=== PATIENT | male | born 1950 | race Caucasian/White ===

== ENCOUNTER 2019-01-27 14:29 | Inpatient (IN) | payer MEDICARE ==
[2019-01-27 14:53] LABS: Basophils % (Auto) 0.5 % (0.0-1.8); Eosinophils # (Auto) 0.5 K/mm3 (0.0-0.4); Eosinophils % (Auto) 9.1 % (0.0-4.3); Hematocrit 42.6 % (35.5-45.6); Hemoglobin 14.6 gm/dl (11.8-15.2); Lymphocytes # (Auto) 2.4 K/mm3 (1.2-5.4); Lymphocytes % (Auto) 41.5 % (13.4-35.0); Mean Corpuscular HGB Conc 34 % (32-34); Mean Corpuscular Volume 96 fl (84-94); Monocytes # (Auto) 0.4 K/mm3 (0.0-0.8); Platelet Count 179 K/mm3 (140-440); Red Blood Count 4.43 M/mm3 (3.65-5.03); Red Cell Distribution Width 13.6 % (13.2-15.2)
[2019-01-27 15:07] LABS: INR 1.07 (0.87-1.13); Partial Thromboplastin Time 28.9 Sec. (24.2-36.6); Thrombin Time 16.9 Sec. (15.1-19.6)
--- NOTE | 2019-01-27 15:13 | Cat Scan Report ---
CT HEAD WITHOUT CONTRAST: HISTORY: Neurological deficit. TECHNIQUE: Sequential 2.5mm CT images. COMPARISON: 04/11/14. FINDINGS: Cerebral Parenchyma: Mild diffuse volume loss and moderate nonspecific chronic white matter changes are again identified. Multiple chronic focal infarcts in the bilateral basal ganglia are again noted and unchanged. There is a new area of diminished attenuation in the right temporal lobe measuring 2.2 x 1.4 cm which could represent a new area of subacute ischemia. Cerebellum: There are multiple focal chronic infarcts in the left cerebral hemisphere measuring up to 1.5 cm. There were only 2 chronic infarcts in the left cerebellum on the 2014 exam. Brainstem: Within normal limits. Ventricles: Normal. Sella: Normal. Extra-axial spaces: Normal. Basal Cisterns: Normal. Intracranial Hemorrhage: None. Midline Shift: None. Calvarium: Normal. Sinuses: Normal. Mastoid Air Cells: Normal. Visualized Orbits: Normal. IMPRESSION: Volume loss and chronic white matter changes. Multiple chronic focal infarcts as described. There is a new area of diminished attenuation in the right temporal lobe concerning for subacute ischemia. Please see above.
[2019-01-27 15:14] LABS: BUN/Creatinine Ratio 12; Blood Urea Nitrogen 12 mg/dL (9-20); Calcium 8.6 mg/dL (8.4-10.2); Hemolysis Index 23
[2019-01-27] MEDS ORDERED: ASPIRIN PO ONE (15:54)
--- NOTE | 2019-01-27 15:56 | Emergency Department Report ---
ED Neuro Deficit HPI - General Chief Complaint: Neuro Symptoms/Deficit Stated Complaint: POSSIBLE STROKE Time Seen by Provider: 01/27/19 15:32 Source: EMS Mode of arrival: Stretcher Limitations: Language Barrier - History of Present Illness Initial Comments: 68-year-old Irish male with a past medical history of elevated cholesterol and tobacco use presents to the Hospital with stroke symptoms. At 1:45 PM bystander's report that patient started having stuttering speech and then stop talking. Upon EMS arrival patient was communicating with staff stated that he did not sound normal and he complained of generalized weakness. Left facial droop reported prior to arrival but not witnessed by EMS. EMS reports no focal deficits in route to the hospital. No pain reported. - Related Data Home Medications: Previous Rx's Medication Instructions Recorded Last Taken Type Cyclobenzaprine [Flexeril 10mg] 10 mg PO TID PRN #12 tablet 04/11/14 Unknown Rx HYDROcodone/APAP 5-325 [[place] 1 - 2 each PO Q4-6H PRN #12 tablet 04/11/14 Unknown Rx 5/325] Ibuprofen [Motrin 800 MG tab] 800 mg PO TID PRN #20 tablet 04/11/14 Unknown Rx Allergies/Adverse Reactions: Allergies Allergy/AdvReac Type Severity Reaction Status Date / Time No Known Allergies Allergy Unverified 04/11/14 11:13 ED Review of Systems ROS: Stated complaint: POSSIBLE STROKE Other details as noted in HPI ED Past Medical Hx - Past Medical History Additional medical history: FIONA, pt speaks vietnemese - Surgical History 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 - Social History Smoking Status: Current Some Day Smoker Substance Use Type: None, Alcohol (none 20 years) - Medications Home Medications: Home Medications Medication Instructions Recorded Confirmed Last Taken Type Cyclobenzaprine [Flexeril 10mg] 10 mg PO TID PRN #12 tablet 04/11/14 Unknown Rx HYDROcodone/APAP 5-325 [[place] 1 - 2 each PO Q4-6H PRN #12 tablet 04/11/14 Unknown Rx 5/325] Ibuprofen [Motrin 800 MG tab] 800 mg PO TID PRN #20 tablet 04/11/14 Unknown Rx ED Neuro Physical Exam - General Limitations: Language Barrier Suspected Stroke: Yes - Neurological Exam Neurological exam: Present: alert - NIHSS Assessment Interval: Baseline 1a. Level of Consciousness: alert/keenly responsive 1b. LOC Questions: answers both correctly 1c. LOC Commands: performs tasks correctly 2. Best Gaze: normal 3. Visual: no visual loss 4. Facial Palsy: normal symmetrical movement 5b. Motor Arm Right: no drift 5a. Motor Arm Left: no drift 6a. Motor Leg Left: no drift 6b. Motor Leg Right: no drift 7. Limb Ataxia: absent 8. Sensory: normal 9. Best Language: no aphasia 10. Dysarthria: normal 11. Extinction/Inattention: no abnormality Total Score: 0 Stroke Severity: No Stroke Symptoms - Other Other exam information: General: No limitations, patient is alert in no acute distress Head exam: Atraumatic, normocephalic Eyes exam: Normal appearance, pupils equal reactive to light, extraocular movements intact ENT: Moist mucous membrane Neck exam: Normal inspection, full range of motion, no meningismus nontender Respiratory exam: Clear to auscultation bilateral, no wheezes, rales, crackles Cardiovascular: Normal rate and rhythm, normal heart sounds Abdomen: Soft, nondistended, and nontender, with normal bowel sounds, no rebound, or guarding Extremity: Full range of motion normal inspection no deformity Back: Normal Inspection, full range of motion, no tenderness Neurologic: Alert, oriented x3, cranial nerves intact, no motor or sensory deficit Psychiatric: normal affect, normal mood Skin: Warm, dry, intact ED Course Vital Signs 01/27/19 01/27/19 01/27/19 14:47 15:15 15:46 Temperature 99 F Pulse Rate 83 77 74 Respiratory 16 16 16 Rate Blood Pressure 122/73 112/70 124/73 [Left] O2 Sat by Pulse 95 98 97 Oximetry - Consultations Consultation #1: 01/27/19 15:55 case d/w dr Galvin with neuro, no deficits noted on her exam, subacute stroke on ct head, not a tpa or thrombectomy candidate at this time. Admission for cva workup - Lab Data Result diagrams: 01/27/19 14:46 01/27/19 14:46 Lab Results 01/27/19 01/27/19 01/27/19 Range/Units 14:46 14:46 14:46 WBC 5.8 (4.5-11.0) K/mm3 RBC 4.43 (3.65-5.03) M/mm3 Hgb 14.6 (11.8-15.2) gm/dl Hct 42.6 (35.5-45.6) % MCV 96 H (84-94) fl MCH 33 H (28-32) pg MCHC 34 (32-34) % RDW 13.6 (13.2-15.2) % Plt Count 179 (140-440) K/mm3 Lymph % (Auto) 41.5 H (13.4-35.0) % [place] % (Auto) 7.0 (0.0-7.3) % Eos % (Auto) 9.1 H (0.0-4.3) % Baso % (Auto) 0.5 (0.0-1.8) % Lymph # 2.4 (1.2-5.4) K/mm3 [place] # 0.4 (0.0-0.8) K/mm3 Eos # 0.5 H (0.0-0.4) K/mm3 Baso # 0.0 (0.0-0.1) K/mm3 Seg Neutrophils % 41.9 (40.0-70.0) % Seg Neutrophils # 2.4 (1.8-7.7) K/mm3 PT 13.6 (12.2-14.9) Sec. INR 1.07 (0.87-1.13) APTT 28.9 (24.2-36.6) Sec. Thrombin Time 16.9 (15.1-19.6) Sec. Sodium 140 (137-145) mmol/L Potassium 4.0 (3.6-5.0) mmol/L Chloride 103.7 (98-107) mmol/L Carbon Dioxide 25 (22-30) mmol/L Anion Gap 15 mmol/L BUN 12 (9-20) mg/dL Creatinine 1.0 (0.8-1.5) mg/dL Estimated GFR > 60 ml/min BUN/Creatinine Ratio 12 % Glucose 110 H (75-100) mg/dL POC Glucose (70-105) Calcium 8.6 (8.4-10.2) mg/dL Troponin T < 0.010 (0.00-0.029) ng/mL 01/27/19 Range/Units 14:59 WBC (4.5-11.0) K/mm3 RBC (3.65-5.03) M/mm3 Hgb (11.8-15.2) gm/dl Hct (35.5-45.6) % MCV (84-94) fl MCH (28-32) pg MCHC (32-34) % RDW (13.2-15.2) % Plt Count (140-440) K/mm3 Lymph % (Auto) (13.4-35.0) % [place] % (Auto) (0.0-7.3) % Eos % (Auto) (0.0-4.3) % Baso % (Auto) (0.0-1.8) % Lymph # (1.2-5.4) K/mm3 [place] # (0.0-0.8) K/mm3 Eos # (0.0-0.4) K/mm3 Baso # (0.0-0.1) K/mm3 Seg Neutrophils % (40.0-70.0) % Seg Neutrophils # (1.8-7.7) K/mm3 PT (12.2-14.9) Sec. INR (0.87-1.13) APTT (24.2-36.6) Sec. Thrombin Time (15.1-19.6) Sec. Sodium (137-145) mmol/L Potassium (3.6-5.0) mmol/L Chloride (98-107) mmol/L Carbon Dioxide (22-30) mmol/L Anion Gap mmol/L BUN (9-20) mg/dL Creatinine (0.8-1.5) mg/dL Estimated GFR ml/min BUN/Creatinine Ratio % Glucose (75-100) mg/dL POC Glucose 106 H (70-105) Calcium (8.4-10.2) mg/dL Troponin T (0.00-0.029) ng/mL - EKG Data -: EKG Interpreted by Or EKG shows normal: sinus rhythm, axis (qrs -50), QRS complexes (qrsd 102), ST-T waves (no stemi) Rate: normal (83) - Radiology Data Radiology results: report reviewed CT head non-contrast: Volume loss and chronic white matter changes. Multiple chronic focal infarcts. A new area of diminished attenuation in the right temporal lobe concerning for subacute ischemia - Medical Decision Making no current deficits not a tpa candidate passed swallow screen asa provided neuro consulted - Differential Diagnosis cva, ich, encephalopathy Critical Care Time: No Critical care attestation.: If time is entered above; I have spent that time in minutes in the direct care of this critically ill patient, excluding procedure time. ED Disposition Clinical Impression: Stroke, Hypercholesteremia, Smoker Disposition: OP ADMIT IP TO THIS HOSP Is pt being admited?: Yes Does the pt Need Aspirin: Yes Condition: Stable Time of Disposition: 16:11 (Dr mckeon/hosp)
--- NOTE | 2019-01-27 15:57 | Emergency Department Report ---
ED Neuro Deficit HPI - General Chief Complaint: Neuro Symptoms/Deficit Stated Complaint: POSSIBLE STROKE Time Seen by Provider: 01/27/19 15:32 Source: EMS Mode of arrival: Stretcher Limitations: Language Barrier - History of Present Illness Initial Comments: [employer] Date of Service: 01/27/19 Impression: Right temporal lobe infarct: symptoms resolved and based on presence on CT likely happened prior to the onset time of 13:20. - - - Not a tpa candidate due to: symptoms resolved Presentation is not suggestive of Large Vessel Occlusive Disease. Thrombectomy would not be recommended. Differential Diagnosis: 1. Cardioembolic 2. Small vessel disease/lacune 3. Thromboembolic, [id number] mechanism 4. Hypercoagulable state-related infarct Comments: LKN: 13:20 Door time: 14:29 [employer] contacted: 15:36 [employer] at bedside: 15:39 NIHSS assessment time: 15:40 Recommendations: -ASA -Permissive htn up to 220/120 -Check Hgb A1c and lipid panel -dysphagia screen -Telemetry -Glucose control per primary team, avoid hypo- and hyperglycemia -DVT prophylaxis -PT/OT/Speech Inpatient neurology consultation Inpatient stroke evaluation as per Neurology/ Internal Medicine Discussed with ED MD Please call with questions Krystyna Vicente, DO [employer] CC left sided weakness and slurred speech History of Present Illness History taken with Jamaican interpretor 68 yo M with history of hl who presented with slurred speech and left sided weakness. Symptoms started at 13:20 per his friend having slurred speech and left sided weakness. He has improved since getting back to the hospital and they feel he is back to baseline. Diagnostic: CT head: evolving right temporal infarct Exam: NIHSS score: 0 Medical Decision Making: - Extensive number of diagnosis or management options are considered above. - Extensive amount of complex data reviewed. - High risk of complication and/or morbidity or mortality are associated with differential diagnostic considerations above. - There may be Uncertain outcome and increased probability of prolonged functional impairment or high probability of severe prolonged functional impairment associated with some of these differential diagnosis. Medical Data Reviewed: 1.Data reviewed include clinical labs, radiology, Medical Tests; 2.Tests results discussed w/performing or interpreting physician; 3.Obtaining/reviewing old medical records; 4.Obtaining case history from another source; 5.Independent review of image, tracing or specimen. Patient was informed the Neurology Consult would happen via TeleHealth consult by way of interactive audio and video telecommunications and consented to receiving care in this manner. - Related Data Home Medications: Previous Rx's Medication Instructions Recorded Last Taken Type Cyclobenzaprine [Flexeril 10mg] 10 mg PO TID PRN #12 tablet 04/11/14 Unknown Rx HYDROcodone/APAP 5-325 [[place] 1 - 2 each PO Q4-6H PRN #12 tablet 04/11/14 Unknown Rx 5/325] Ibuprofen [Motrin 800 MG tab] 800 mg PO TID PRN #20 tablet 04/11/14 Unknown Rx Allergies/Adverse Reactions: Allergies Allergy/AdvReac Type Severity Reaction Status Date / Time No Known Allergies Allergy Unverified 04/11/14 11:13 ED Review of Systems ROS: Stated complaint: POSSIBLE STROKE Other details as noted in HPI ED Past Medical Hx - Past Medical History Additional medical history: FIONA, pt speaks vietnemese - Surgical History 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 Level of Consciousness: alert/keenly responsive 1b. LOC Questions: answers both correctly 1c. LOC Commands: performs tasks correctly 2. Best Gaze: normal 3. Visual: no visual loss 4. Facial Palsy: normal symmetrical movement 5b. Motor Arm Right: no drift 5a. Motor Arm Left: no drift 6a. Motor Leg Left: no drift 6b. Motor Leg Right: no drift 7. Limb Ataxia: absent 8. Sensory: normal 9. Best Language: no aphasia 10. Dysarthria: normal 11. Extinction/Inattention: no abnormality Total Score: 0 Stroke Severity: No Stroke Symptoms ED Course Vital Signs 01/27/19 01/27/19 14:47 15:46 Temperature 99 F Pulse Rate 83 74 Respiratory 16 16 Rate Blood Pressure 122/73 124/73 [Left] O2 Sat by Pulse 95 97 Oximetry - Lab Data Result diagrams: 01/27/19 14:46 01/27/19 14:46 Lab Results 01/27/19 01/27/19 01/27/19 Range/Units 14:46 14:46 14:46 WBC 5.8 (4.5-11.0) K/mm3 RBC 4.43 (3.65-5.03) M/mm3 Hgb 14.6 (11.8-15.2) gm/dl Hct 42.6 (35.5-45.6) % MCV 96 H (84-94) fl MCH 33 H (28-32) pg MCHC 34 (32-34) % RDW 13.6 (13.2-15.2) % Plt Count 179 (140-440) K/mm3 Lymph % (Auto) 41.5 H (13.4-35.0) % [place] % (Auto) 7.0 (0.0-7.3) % Eos % (Auto) 9.1 H (0.0-4.3) % Baso % (Auto) 0.5 (0.0-1.8) % Lymph # 2.4 (1.2-5.4) K/mm3 [place] # 0.4 (0.0-0.8) K/mm3 Eos # 0.5 H (0.0-0.4) K/mm3 Baso # 0.0 (0.0-0.1) K/mm3 Seg Neutrophils % 41.9 (40.0-70.0) % Seg Neutrophils # 2.4 (1.8-7.7) K/mm3 PT 13.6 (12.2-14.9) Sec. INR 1.07 (0.87-1.13) APTT 28.9 (24.2-36.6) Sec. Thrombin Time 16.9 (15.1-19.6) Sec. Sodium 140 (137-145) mmol/L Potassium 4.0 (3.6-5.0) mmol/L Chloride 103.7 (98-107) mmol/L Carbon Dioxide 25 (22-30) mmol/L Anion Gap 15 mmol/L BUN 12 (9-20) mg/dL Creatinine 1.0 (0.8-1.5) mg/dL Estimated GFR > 60 ml/min BUN/Creatinine Ratio 12 % Glucose 110 H (75-100) mg/dL POC Glucose (70-105) Calcium 8.6 (8.4-10.2) mg/dL Troponin T < 0.010 (0.00-0.029) ng/mL 01/27/19 Range/Units 14:59 WBC (4.5-11.0) K/mm3 RBC (3.65-5.03) M/mm3 Hgb (11.8-15.2) gm/dl Hct (35.5-45.6) % MCV (84-94) fl MCH (28-32) pg MCHC (32-34) % RDW (13.2-15.2) % Plt Count (140-440) K/mm3 Lymph % (Auto) (13.4-35.0) % [place] % (Auto) (0.0-7.3) % Eos % (Auto) (0.0-4.3) % Baso % (Auto) (0.0-1.8) % Lymph # (1.2-5.4) K/mm3 [place] # (0.0-0.8) K/mm3 Eos # (0.0-0.4) K/mm3 Baso # (0.0-0.1) K/mm3 Seg Neutrophils % (40.0-70.0) % Seg Neutrophils # (1.8-7.7) K/mm3 PT (12.2-14.9) Sec. INR (0.87-1.13) APTT (24.2-36.6) Sec. Thrombin Time (15.1-19.6) Sec. Sodium (137-145) mmol/L Potassium (3.6-5.0) mmol/L Chloride (98-107) mmol/L Carbon Dioxide (22-30) mmol/L Anion Gap mmol/L BUN (9-20) mg/dL Creatinine (0.8-1.5) mg/dL Estimated GFR ml/min BUN/Creatinine Ratio % Glucose (75-100) mg/dL POC Glucose 106 H (70-105) Calcium (8.4-10.2) mg/dL Troponin T (0.00-0.029) ng/mL Critical care attestation.: If time is entered above; I have spent that time in minutes in the direct care of this critically ill patient, excluding procedure time. ED Disposition Clinical Impression: Stroke Disposition: DC-09 OP ADMIT IP TO THIS HOSP Is pt being admited?: Yes Condition: Stable Referrals: PRIMARY CARE, [Primary Care Provider] - 3-5 Days
[2019-01-27] MEDS ORDERED: SODIUM CHLORIDE FLUSH SYRINGE 10 ML IV PRN ×2 (16:59→17:04)
[2019-01-27] MEDS ORDERED: ZOFRAN IV PRN (16:59)
[2019-01-27] MEDS ORDERED: TYLENOL PO PRN (16:59)
--- NOTE | 2019-01-27 16:59 | History and Physical Report ---
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 Social History Smoking Status: Current Some Day Smoker Substance Use Type: None, Alcohol (none 20 years) Family History Htn Medications Home Medications: Home Medications Medication Instructions Recorded Confirmed Last Taken Type Cyclobenzaprine [Flexeril 10mg] 10 mg PO TID PRN #12 tablet 04/11/14 Unknown Rx HYDROcodone/APAP 5-325 [[place] 1 - 2 each PO Q4-6H PRN #12 tablet 04/11/14 Unknown Rx 5/325] Ibuprofen [Motrin 800 MG tab] 800 mg PO TID PRN #20 tablet 04/11/14 Unknown Rx Review of systems ROS: Stated complaint: Stuttering speech and left-sided numbness for 1 hour Other details as noted in HPI 14 point review of systems done--otherwise negative Medications and Allergies Allergies Allergy/AdvReac Type Severity Reaction Status Date / Time No Known Allergies Allergy Unverified 04/11/14 11:13 Home Medications Medication Instructions Recorded Confirmed Last Taken Type Cyclobenzaprine [Flexeril 10mg] 10 mg PO TID PRN #12 tablet 04/11/14 Unknown Rx HYDROcodone/APAP 5-325 [[place] 1 - 2 each PO Q4-6H PRN #12 tablet 04/11/14 Unknown Rx 5/325] Ibuprofen [Motrin 800 MG tab] 800 mg PO TID PRN #20 tablet 04/11/14 Unknown Rx Exam - Constitutional Vitals: Temp Pulse Resp BP Pulse Ox 99 F 74 16 124/73 97 01/27/19 14:47 01/27/19 15:46 01/27/19 15:46 01/27/19 15:46 01/27/19 15:46 General appearance: Present: no acute distress, well-nourished - EENT Eyes: Present: PERRL ENT: hearing intact, clear oral mucosa - Neck Neck: Present: supple, normal ROM - Respiratory Respiratory effort: normal Respiratory: bilateral: CTA - Cardiovascular Heart rate: 83 Rhythm: regular Heart Sounds: Present: S1 & S2. Absent: rub, click - Extremities Extremities: no ischemia, pulses intact, pulses symmetrical, No edema Peripheral Pulses: within normal limits - Abdominal General gastrointestinal: Present: soft, non-tender, non-distended, normal bowel sounds Male genitourinary: Present: normal - Rectal Rectal Exam: deferred - Integumentary Integumentary: Present: clear, warm, dry - Musculoskeletal Musculoskeletal: gait normal, strength equal bilaterally - Psychiatric Psychiatric: appropriate mood/affect, intact judgment & insight, cooperative - Neurologic Neurologic: CNII-XII intact, moves all extremities, other (no focal deficits, speech is normal now during my exam) - Allied Health Allied health notes reviewed: nursing Results - Labs CBC & Chem 7: 01/27/19 14:46 01/27/19 14:46 Labs: Laboratory Last Values WBC 5.8 K/mm3 (4.5-11.0) 01/27/19 14:46 RBC 4.43 M/mm3 (3.65-5.03) 01/27/19 14:46 Hgb 14.6 gm/dl (11.8-15.2) 01/27/19 14:46 Hct 42.6 % (35.5-45.6) 01/27/19 14:46 MCV 96 fl (84-94) H 01/27/19 14:46 MCH 33 pg (28-32) H 01/27/19 14:46 MCHC 34 % (32-34) 01/27/19 14:46 RDW 13.6 % (13.2-15.2) 01/27/19 14:46 Plt Count 179 K/mm3 (140-440) 01/27/19 14:46 Lymph % (Auto) 41.5 % (13.4-35.0) H 01/27/19 14:46 [place] % (Auto) 7.0 % (0.0-7.3) 01/27/19 14:46 Eos % (Auto) 9.1 % (0.0-4.3) H 01/27/19 14:46 Baso % (Auto) 0.5 % (0.0-1.8) 01/27/19 14:46 Lymph # 2.4 K/mm3 (1.2-5.4) 01/27/19 14:46 [place] # 0.4 K/mm3 (0.0-0.8) 01/27/19 14:46 Eos # 0.5 K/mm3 (0.0-0.4) H 01/27/19 14:46 Baso # 0.0 K/mm3 (0.0-0.1) 01/27/19 14:46 Seg Neutrophils % 41.9 % (40.0-70.0) 01/27/19 14:46 Seg Neutrophils # 2.4 K/mm3 (1.8-7.7) 01/27/19 14:46 PT 13.6 Sec. (12.2-14.9) 01/27/19 14:46 INR 1.07 (0.87-1.13) 01/27/19 14:46 APTT 28.9 Sec. (24.2-36.6) 01/27/19 14:46 16.9 Sec. (15.1-19.6) 01/27/19 14:46 Sodium 140 mmol/L (137-145) 01/27/19 14:46 Potassium 4.0 mmol/L (3.6-5.0) 01/27/19 14:46 Chloride 103.7 mmol/L (98-107) 01/27/19 14:46 Carbon Dioxide 25 mmol/L (22-30) 01/27/19 14:46 15 mmol/L 01/27/19 14:46 BUN 12 mg/dL (9-20) 01/27/19 14:46 1.0 mg/dL (0.8-1.5) 01/27/19 14:46 Estimated GFR > 60 ml/min 01/27/19 14:46 12 % 01/27/19 14:46 Glucose 110 mg/dL (75-100) H 01/27/19 14:46 POC Glucose 106 (70-105) H 01/27/19 14:59 Calcium 8.6 mg/dL (8.4-10.2) 01/27/19 14:46 < 0.010 ng/mL (0.00-0.029) 01/27/19 14:46 - Imaging and Cardiology EKG: report reviewed (normal sinus rhythm heart rate of 83/m ST elevation suggesting pericarditis) Imaging and Cardiology: CT head IMPRESSION: Volume loss and chronic white matter changes. Multiple chronic focal infarcts as described. There is a new area of diminished attenuation in the right temporal lobe concerning for subacute ischemia. Please see above. Assessment and Plan Advance Directives: Yes (full code) VTE prophylaxis?: Chemical Plan of care discussed with patient/family: Yes - Patient Problems (1) TIA (transient ischemic attack) Current Visit: Yes Status: Acute Plan to address problem: TIA workup TIA resolved Aspirin to be continued Hyperintensity is Statins started for future prevention MRI/MRA carotid duplex scan and echocardiogram ordered Neurologic consult ordered (2) Hyperlipidemia Current Visit: Yes Status: Chronic Qualifiers: Hyperlipidemia type: mixed hyperlipidemia Qualified Code(s): E78.2 - Mixed hyperlipidemia Plan to address problem: Patient was started on statins (3) Encounter for smoking cessation counseling Current Visit: Yes Status: Chronic Plan to address problem: Patient counseled about stopping smoking for 7-10 minutes NicoDerm patch initiated (4) DVT prophylaxis Current Visit: Yes Status: Acute Plan to address problem: Lovenox 40 mg subcutaneous daily and GI prophylaxis (5) Advanced care planning/counseling discussion Current Visit: Yes Status: Acute Plan to address problem: Patient wants to be full code
[2019-01-27] MEDS ORDERED: NACL 0.9% 1000 ML 1,000 ML IV SCH (17:00)
[2019-01-27] MEDS ORDERED: DILAUDID IV PRN (17:00)
[2019-01-27] MEDS ORDERED: FLEXERIL PO PRN (17:07)
--- NOTE | 2019-01-27 17:58 | Consultation ---
History of Present Illness Consult date: 01/27/19 Chief complaint: speech problem History of present illness: This is a 68 YO M who was noted to have trouble speaking so EMS was called. Pt speaks only south korean so it is difficult for me to comment on the quality of his speech but he is able to read south korean and follow commands with out difficulty. Denied current complaints. Past History Past Medical History: hyperlipidemia Past Surgical History: No surgical history Social history: lives with family Family history: no significant family history Medications and Allergies Allergies Allergy/AdvReac Type Severity Reaction Status Date / Time No Known Allergies Allergy Unverified 04/11/14 11:13 Home Medications Medication Instructions Recorded Confirmed Last Taken Type Cyclobenzaprine [Flexeril 10mg] 10 mg PO TID PRN #12 tablet 04/11/14 Unknown Rx HYDROcodone/APAP 5-325 [Mason 1 - 2 each PO Q4-6H PRN #12 tablet 04/11/14 Unknown Rx 5/325] Ibuprofen [Motrin 800 MG tab] 800 mg PO TID PRN #20 tablet 04/11/14 Unknown Rx Active Meds: Active Medications Acetaminophen (Tylenol) 650 mg PO Q4H PRN PRN Reason: Pain MILD(1-3)/Fever >100.5/ROSARIO Aspirin (Aspirin) 325 mg PO QDAY ABHISHEK Atorvastatin Calcium (Lipitor) 40 mg PO QHS ABHISHEK Cyclobenzaprine HCl (Flexeril) 10 mg PO BID PRN PRN Reason: Muscle Spasm Hydromorphone HCl (Dilaudid) 0.5 mg IV Q3H PRN PRN Reason: Pain , Severe (7-10) Sodium Chloride (Nacl 0.9% 1000 Ml) 1,000 mls @ 75 mls/hr IV DIRECT ABHISHEK Stop: 01/28/19 11:00 Ondansetron HCl (Zofran) 4 mg IV Q8H PRN PRN Reason: Nausea And Vomiting Sodium Chloride (Sodium Chloride Flush Syringe 10 Ml) 10 ml IV BID ABHISHEK Sodium Chloride (Sodium Chloride Flush Syringe 10 Ml) 10 ml IV PRN PRN PRN Reason: LINE FLUSH Sodium Chloride (Sodium Chloride Flush Syringe 10 Ml) 10 ml INJ PRN PRN PRN Reason: LINE FLUSH Review of Systems Neurological: change in speech Physical Examination - Vital Signs Vital Signs: Vital Signs Temp Pulse Resp BP Pulse Ox 99 F 83 16 122/73 95 06/18/19 14:47 01/27/19 14:47 01/27/19 14:47 01/27/19 14:47 01/27/19 14:47 - Constitutional General appearance: comfortable - EENT EENT: Present: PERRL, mucous membranes moist - Respiratory Respiratory: Present: lungs clear - Cardiovascular Cardiovascular: Present: regular rate Extremities: Present: no peripheral edema bilatateraly - Gastrointestinal Gastrointestinal: Present: normoactive bowel sounds - Integumentary Integumentary: Present: normal - Neurologic Cranial nerve examination: PERRL, EOMI, V1/V2/V3 grossly intact, face symmetric, tongue midline Speech examination: intact Sensorimotor examination: intact Motor examination - right side: 5/5: biceps, triceps, wrist flexion, wrist extension, adoption agent, hip flexors, knee extensors, dorsiflexion, toe extension (EHL), plantarflexion Motor examination - left side: 5/5: biceps, triceps, wrist flexion, wrist extension, adoption agent, hip flexors, knee extensors, dorsiflexion, toe extension (EHL), plantarflexion Detailed sensory examination: light touch Reflexes: 1+: ankle, bicep, knee, tricep - Psychiatric Psychiatric: Present: mood/affect appropriate Results - Laboratory Findings CBC and BMP: 01/27/19 14:46 01/27/19 14:46 Abnormal Lab Findings: Abnormal Labs 01/27/19 01/27/19 01/27/19 14:46 14:46 14:59 MCV 96 H MCH 33 H Lymph % (Auto) 41.5 H Eos % (Auto) 9.1 H Eos # 0.5 H Glucose 110 H POC Glucose 106 H - Diagnostic Findings Additional findings: CT head with possible subacute right temporal ischemia Assessment and Plan This is a 57 YO M with change in speech, ? resolved. Currently able to read and understand Bahamian without difficulty. REcommend: TIA workup- agree with MRI/A, PT.OT.ST, echo and carotids. Aspirin and statin, VTE prophylaxis A1C and lipids Continue care for his medical issues as you are doing. BP looks good.
[2019-01-27] MEDS: SODIUM CHLORIDE FLUSH SYRINGE 10 ML IV SCH (22:30)
[2019-01-28 06:33] LABS: Basophils % (Auto) 0.6 % (0.0-1.8); Eosinophils # (Auto) 0.5 K/mm3 (0.0-0.4); Eosinophils % (Auto) 7.6 % (0.0-4.3); Hematocrit 42.9 % (35.5-45.6); Hemoglobin 14.6 gm/dl (11.8-15.2); Lymphocytes # (Auto) 2.5 K/mm3 (1.2-5.4); Lymphocytes % (Auto) 37.6 % (13.4-35.0); Mean Corpuscular HGB Conc 34 % (32-34); Mean Corpuscular Volume 97 fl (84-94); Monocytes # (Auto) 0.6 K/mm3 (0.0-0.8); Monocytes % (Auto) 8.9 % (0.0-7.3); Platelet Count 177 K/mm3 (140-440); Red Blood Count 4.42 M/mm3 (3.65-5.03); Red Cell Distribution Width 13.6 % (13.2-15.2)
[2019-01-28 06:56] LABS: BUN/Creatinine Ratio 19; Blood Urea Nitrogen 15 mg/dL (9-20)
[2019-01-28 06:57] LABS: Alanine Aminotransferase 15 units/L (7-56); Albumin 3.7 g/dL (3.9-5); Calcium 8.4 mg/dL (8.4-10.2); Chol/HDL Ratio 4.58 %; HDL Cholesterol 34 mg/dL (40-59); Hemolysis Index 5; LDL Cholesterol,Direct 112 mg/dL (50-130)
[2019-01-28] MEDS: SODIUM CHLORIDE FLUSH SYRINGE 10 ML IV SCH ×2 (09:32→21:16)
[2019-01-28] MEDS: ASPIRIN PO SCH (09:32)
[2019-01-28] MEDS ORDERED: PNEUMOVAX 23 IM ONE (12:00)
--- NOTE | 2019-01-28 13:49 | Magnetic Resonance Report ---
MRI BRAIN WITHOUT CONTRAST: 01/28/19 CLINICAL: Stroke. COMPARISON: CT head 01/27/19 TECHNIQUE: Axial diffusion, T1, T2, gradient echo T2*, coronal and axial FLAIR and sagittal T1 sequences on a 1.5 Clarita magnet. FINDINGS: The ventricles and sulci are diffusely large for age. Multifocal right hemispheric restricted diffusion involving multifocal areas of the the right temporal lobe, right frontal lobe white matter adjacent to the anterior aspect of the putamen and caudate head. A few additional tiny foci of restricted diffusion involving the right occipital lobe cortex. The right frontal lobe infarcts are adjacent to chronic periventricular infarcts. These chronic periventricular infarcts are matched on the left side. Additional chronic bilateral basal ganglia lacunar infarcts and a chronic left cerebellar infarct. Mild edema of the right temporal lobe and right occipital lobe but no significant mass effect. No hemorrhage or extra-axial collection. Hemosiderin deposition in bilateral chronic periventricular infarcts. No chronic microbleeds on the gradient echo sequence. Moderate bilateral chronic white matter microangiopathy. No mass. Normal pituitary and optic chiasm. The brainstem is normal. Intact vascular flow voids. Normal sinuses. The orbits, and soft tissues are normal. Normal calvarium and skull base. IMPRESSION: 1. Multiple right hemispheric acute/subacute nonhemorrhagic infarcts involving the right frontal lobe, right temporal lobe and right occipital lobe. 2. Bilateral chronic cerebral infarcts as described above and a chronic left cerebellar infarct.
--- NOTE | 2019-01-28 14:00 | Magnetic Resonance Report ---
MRA HEAD WITHOUT CONTRAST: 09/30/18 CLINICAL: Stroke. TECHNIQUE: Axial 3-D [id number] MR angiography of the [place] with review of axial source images. FINDINGS: A high-grade stenosis at the origin of the right MCA and asymmetrically decreased blood flow in distal right MCA branches. The ICAs and the rest of the [place] are intact. No aneurysm. Intact basilar and vertebral arteries. IMPRESSION: High-grade right MCA stenosis at its origin and decreased blood flow in distal right MCA branches.
--- NOTE | 2019-01-28 14:13 | Progress Note ---
Assessment and Plan Assessment and plan: Patient is a 68 yo Right handed Slovak man with a history of dyslipidemia and tobacco dependency who presents to [facility] ED with left sided weakness and speech abnormalities. Teleneurologist used and patient was deemed NOT a candidate because symptoms had resolved. Currently, he denies headache and weak ness. WISErg language line used. * Brain MRI IMPRESSION: 1. Multiple right hemispheric acute/subacute nonhemorrhagic infarcts involving the right frontal lobe, right temporal lobe and right occipital lobe. 2. Bilateral chronic cerebral infarcts as described above and a chronic left cerebellar infarct Acute ischemic stroke in evolution: treat with ASA and statin. Rehab assessment, get ECHO, us carotid, mra held pending Tobacco dependency: res counselor on stopping. Dyslipidemia: treat with statin. DVT ppx reviewed echo, us carotid, brain mra pending History Interval history: Patient was seen and examined. Follow-up on current diagnosis of CVA. No overnight events reported to me. Patient denies any chest pain, shortness breath, nausea/vomiting or severe headaches. Imaging, nursing note, chart, labs and old chart reviewed. Discussed with patient. Hospitalist Physical - Physical exam Narrative exam: Gen: WDWN, NAD, Awake, Alert, Orientated HEENT: NCAT, EOMI, PERRL, OP Clear Neck: supple, no adenopathy, no thyromegaly, no JVD CVS/Heart: RRR, normal S1S2, pulses present bilaterally Chest/Lungs: CTA B, Symmetrical chest expansion, good air entry bilaterally GI/Abdomen: soft, NTND, good bowel sounds, no guarding or rebound /Bladder: no suprapubic tenderness, no CVA or paraspinal tenderness Extermity/Skin: no c/c/e, no obvious rash MSK: FROM x 4 Neuro: CN 2-12 grossly intact, no new focal deficits Psych: calm - Constitutional Vitals: Temp Pulse Resp BP Pulse Ox 98.2 F 67 16 122/78 97 01/28/19 07:42 01/28/19 12:20 01/28/19 07:42 01/28/19 07:42 01/28/19 10:04 General appearance: Present: no acute distress, well-nourished Results - Labs CBC & Chem 7: 01/28/19 05:52 01/28/19 05:52 Labs: Laboratory Last Values WBC 6.6 K/mm3 (4.5-11.0) 01/28/19 05:52 RBC 4.42 M/mm3 (3.65-5.03) 01/28/19 05:52 Hgb 14.6 gm/dl (11.8-15.2) 01/28/19 05:52 Hct 42.9 % (35.5-45.6) 01/28/19 05:52 MCV 97 fl (84-94) H 01/28/19 05:52 MCH 33 pg (28-32) H 01/28/19 05:52 MCHC 34 % (32-34) 01/28/19 05:52 RDW 13.6 % (13.2-15.2) 01/28/19 05:52 Plt Count 177 K/mm3 (140-440) 01/28/19 05:52 Lymph % (Auto) 37.6 % (13.4-35.0) H 01/28/19 05:52 Gaines % (Auto) 8.9 % (0.0-7.3) H 01/28/19 05:52 Eos % (Auto) 7.6 % (0.0-4.3) H 01/28/19 05:52 Baso % (Auto) 0.6 % (0.0-1.8) 01/28/19 05:52 Lymph # 2.5 K/mm3 (1.2-5.4) 01/28/19 05:52 Gaines # 0.6 K/mm3 (0.0-0.8) 01/28/19 05:52 Eos # 0.5 K/mm3 (0.0-0.4) H 01/28/19 05:52 Baso # 0.0 K/mm3 (0.0-0.1) 01/28/19 05:52 Seg Neutrophils % 45.3 % (40.0-70.0) 01/28/19 05:52 Seg Neutrophils # 3.0 K/mm3 (1.8-7.7) 01/28/19 05:52 PT 13.6 Sec. (12.2-14.9) 01/27/19 14:46 INR 1.07 (0.87-1.13) 01/27/19 14:46 APTT 28.9 Sec. (24.2-36.6) 01/27/19 14:46 16.9 Sec. (15.1-19.6) 01/27/19 14:46 Sodium 143 mmol/L (137-145) 01/28/19 05:52 Potassium 4.0 mmol/L (3.6-5.0) 01/28/19 05:52 Chloride 107.0 mmol/L (98-107) 01/28/19 05:52 Carbon Dioxide 24 mmol/L (22-30) 01/28/19 05:52 16 mmol/L 01/28/19 05:52 BUN 15 mg/dL (9-20) 01/28/19 05:52 0.8 mg/dL (0.8-1.5) 01/28/19 05:52 Estimated GFR > 60 ml/min 01/28/19 05:52 19 % 01/28/19 05:52 Glucose 102 mg/dL (75-100) H 01/28/19 05:52 POC Glucose 106 (70-105) H 01/27/19 14:59 5.6 % (4-6) 01/27/19 14:46 Calcium 8.4 mg/dL (8.4-10.2) 01/28/19 05:52 0.30 mg/dL (0.1-1.2) 01/28/19 05:52 AST 14 units/L (5-40) 01/28/19 05:52 ALT 15 units/L (7-56) 01/28/19 05:52 68 units/L (35-129) 01/28/19 05:52 < 0.010 ng/mL (0.00-0.029) 01/27/19 14:46 6.4 g/dL (6.3-8.2) 01/28/19 05:52 3.7 g/dL (3.9-5) L 01/28/19 05:52 1.4 % 01/28/19 05:52 Triglycerides 116 mg/dL (2-149) 01/28/19 05:52 Cholesterol 156 mg/dL (50-199) 01/28/19 05:52 112 mg/dL (50-130) 01/28/19 05:52 34 mg/dL (40-59) L 01/28/19 05:52 4.58 % 01/28/19 05:52 Active Medications - Current Medications Current Medications: Generic Name Dose Route Start Last Admin Trade Name Freq PRN Reason Stop Dose Admin Acetaminophen 650 mg 01/27/19 16:59 Tylenol PO Q4H PRN Pain MILD(1-3)/Fever >100.5/ROSARIO Aspirin 325 mg 01/28/19 10:00 01/28/19 09:32 Aspirin PO 325 mg QDAY ABHISHEK Administration Atorvastatin Calcium 40 mg 01/27/19 22:00 01/27/19 22:35 Lipitor PO 40 mg QHS ABHISHEK Administration Cyclobenzaprine HCl 10 mg 01/27/19 17:07 Flexeril PO BID PRN Muscle Spasm Hydromorphone HCl 0.5 mg 01/27/19 17:00 Dilaudid IV Q3H PRN Pain , Severe (7-10) Ondansetron HCl 4 mg 01/27/19 16:59 Zofran IV Q8H PRN Nausea And Vomiting Sodium Chloride 10 ml 01/27/19 22:00 01/28/19 09:32 Sodium Chloride Flush Syringe 10 Ml IV 10 ml BID ABHISHEK Administration Sodium Chloride 10 ml 01/27/19 16:59 Sodium Chloride Flush Syringe 10 Ml IV PRN PRN LINE FLUSH
--- NOTE | 2019-01-28 19:20 | Vascular Lab Report ---
PROCEDURE: VL CAROTID DUPLEX BILAT TECHNIQUE: Ultrasound of the bilateral carotid arteries. Reported ICA Stenosis % per the NASCET crite geraldine. PRIORS : None FINDINGS: PLAQUE DISTRIBUTION: Mild heterogeneous plaque is present bilaterally VELOCITIES: RIGHT ICA peak systolic velocity (cm/sec): 83 ICA end diastolic velocity (cm/sec): 21 CCA peak systolic velocity (cm/sec): 109 ECA peak systolic velocity (cm/sec): 126 ICA/CCA systolic velocity ratio (cm/sec): 0.76 Right vertebral: Antegrade ICA STENOSIS ESTIMATION: < 50 % LEFT ICA peak systolic velocity (cm/sec): 91 ICA end diastolic velocity (cm/sec): 28 CCA peak systolic velocity (cm/sec): 108 ECA peak systolic velocity (cm/sec): 93 ICA/CCA systolic velocity ratio (cm/sec): 0.84 Left vertebral: Antegrade ICA STENOSIS ESTIMATION: < 50 % IMPRESSION: No clinically significant areas of stenosis noted bilaterally. ICA Stenosis % per the NASCET criteria is < 50 % on the right and < 50 % on the left. This document is electronically signed by Amy Lockett MD., January 28 2019 07:18:45 PM ET
[2019-01-28] MEDS: HEPARIN SUB-Q SCH (21:15)
[2019-01-28] MEDS ORDERED: MIRALAX 3350 PO PRN (21:58)
[2019-01-28] MEDS: COLACE PO SCH (22:50)
[2019-01-29 08:43] VITALS: BP 115/77
[2019-01-29] MEDS: HEPARIN SUB-Q SCH (09:49)
[2019-01-29] MEDS: COLACE PO SCH (09:49)
[2019-01-29] MEDS: ASPIRIN PO SCH (09:49)
[2019-01-29] MEDS: SODIUM CHLORIDE FLUSH SYRINGE 10 ML IV SCH (09:50)
--- NOTE | 2019-01-29 17:10 | Discharge Summary ---
Providers - Providers Date of Admission: 01/27/19 16:12 Date of discharge: 01/29/19 Attending physician: SHAVONNE SALES 01/27/19 17:00 Consult to Physician [CONS] Routine Comment: Consulting Provider: DK CLARKE Physician Instructions: Reason For Exam: TIA 01/27/19 17:04 Occupational Therapy Evaluate and Treat [CONS] Routine Comment: Reason For Exam: Neuro deficits Physical Therapy Evaluation and Treat [CONS] Routine Comment: Reason For Exam: Neuro deficits Primary care physician: ARMEN BROWN Hospitalization Condition: Stable Hospital course: Patient is a 68 yo Right handed Polish man with a history of dyslipidemia and tobacco dependency who presents to [facility] ED with left sided weakness and speech abnormalities. Teleneurologist evaluated patient was deemed NOT a candidate because symptoms had resolved. Currently, he denies headache and weakness. B[employer]an[employer] language line used. * Brain MRA/MRI IMPRESSION: High-grade right MCA stenosis at its origin and decreased blood flow in distal right MCA branches. * Brain MRI IMPRESSION: 1. Multiple right hemispheric acute/subacute nonhemorrhagic infarcts involving the right frontal lobe, right temporal lobe and right occipital lobe. 2. Bilateral chronic cerebral infarcts as described above and a chronic left cerebellar infarct. * Carotid Bilateral Duplex IMPRESSION: No clinically significant areas of stenosis noted bilaterally. ICA Stenosis % per the NASCET criteria is < 50 % on the right and < 50 % on the left * 2D ECHO global left ventricular systolic function is normal, estimated EF 50- 55%, mild concentric LVH, trace MR, trace TR, negative contrast bubble study Acute ischemic stroke in evolution: treat with ASA and statin. High-grade right MCA stenosis: add plavix, give NSY outpatient referral Tobacco dependency: claims counsel on stopping. Dyslipidemia: treat with statin. DVT ppx reviewed Disposition: DC-01 TO HOME OR SELFCARE Time spent for discharge: 35 minutes Core Measure Documentation - Palliative Care Palliative Care/ Comfort Measures: Not Applicable - Core Measures Any of the following diagnoses?: stroke - VTE Discharge Requirements Deep Vein Thrombosis/Pulmonary Embolism Present on Admission: No Has pt received <5 days of overlap therapy or INR<2.0: No Anticoagulant overlap therapy prescribed at discharge: No Contraindication No Overlap Therapy order at DC: Not Indicated - Stroke Discharge Requirements Statin for LDL = or >70 mg/dl on DC: Yes Anticoag for atrial fib/atrial flutter: Not Applicable Reason for no anticoag for AF/F on DC: Not Indicated Antithrombotic for ischemic stroke: Yes Exam - Physical Exam Narrative exam: Gen: WDWN, NAD, Awake, Alert, Orientated HEENT: NCAT, EOMI, PERRL, OP Clear Neck: supple, no adenopathy, no thyromegaly, no JVD CVS/Heart: RRR, normal S1S2, pulses present bilaterally Chest/Lungs: CTA B, Symmetrical chest expansion, good air entry bilaterally GI/Abdomen: soft, NTND, good bowel sounds, no guarding or rebound /Bladder: no suprapubic tenderness, no CVA or paraspinal tenderness Extermity/Skin: no c/c/e, no obvious rash MSK: FROM x 4 Neuro: CN 2-12 grossly intact, no new focal deficits Psych: calm - Constitutional Vitals: Temp Pulse Resp BP Pulse Ox 97.8 F 74 20 115/77 95 01/29/19 07:46 01/29/19 07:46 01/29/19 09:00 01/29/19 07:46 01/29/19 07:46 Plan Activity: no driving until cleared by PCP, other (no strenous activity unless cleared by PCP) Diet: low salt Special Instructions: smoking cessation Follow up with: LINCOLN PATINO MD [Staff Physician] - 7 Days VICKIE ALARCON MD [Staff Physician] - 3 Days Prescriptions: Atorvastatin Calcium [Lipitor] 80 mg PO QHS #30 tablet Aspirin [Aspirin BABY CHEW TAB] 81 mg PO QDAY #30 tab Clopidogrel [Plavix] 75 mg PO QDAY #30 tablet Pantoprazole [Protonix TAB] 20 mg PO QDAY #30 tablet.
--- NOTE | 2019-01-29 17:54 | Progress Note ---
Assessment and Plan This is a 57 YO M with change in speech, found to have R MCA strokes with R MCA stenosis REcommend: Work up noted, agree with low dose aspirin and Plavix, high intensity statin Continue care for all medical issues as you are doing Close outpt PCP follow up. No further acute neuro issues. Subjective Date of service: 01/29/19 Interval history: No complaints. PT found to have R MCA strokes with R MCA stenosis. Objective - Vital Sign Vital Signs - 12hr 01/29/19 01/29/19 01/29/19 07:46 09:00 12:00 Temperature 97.8 F Pulse Rate 74 79 Respiratory 18 20 Rate Blood Pressure 115/77 O2 Sat by Pulse 95 Oximetry - General Apperance Constitutional: comfortable - EENT EENT: mucous membranes moist - Respiratory Respiratory: lungs clear, normal breath sounds - Gastrointestinal Gastrointestinal: normoactive bowel sounds - Neurologic Cranial nerve examination: anosmic, EOMI, V1/V2/V3 grossly intact Detailed motor examination: grossly full strength in - Laboratory Findings CBC and BMP: 01/28/19 05:52 01/28/19 05:52 Abnormal Lab Findings: Abnormal Labs 01/27/19 01/27/19 01/27/19 14:46 14:46 14:59 MCV 96 H MCH 33 H Lymph % (Auto) 41.5 H [place] % (Auto) Eos % (Auto) 9.1 H Eos # 0.5 H Glucose 110 H POC Glucose 106 H Albumin HDL Cholesterol 01/28/19 01/28/19 05:52 05:52 MCV 97 H MCH 33 H Lymph % (Auto) 37.6 H [place] % (Auto) 8.9 H Eos % (Auto) 7.6 H Eos # 0.5 H Glucose 102 H POC Glucose Albumin 3.7 L HDL Cholesterol 34 L - Diagnostic Findings Additional findings: MRI/A as noted
== END 2019-01-29 17:30 | disposition home health service (06) | DRG 65 ==
LOC: ED 14:29 → 4A 16:12
PROVIDERS: ADMIT Internal Medicine; ATTEND Internal Medicine
PROC: 3E0234Z Introduction of Serum, Toxoid and Vaccine into Muscle, Percutaneous Approach (ICD-10-PCS; principal; 2019-01-28)
DX: I63.511 Cerebral infarction due to unspecified occlusion or stenosis of right middle cerebral artery (principal); G81.94 Hemiplegia, unspecified affecting left nondominant side; F17.210 Nicotine dependence, cigarettes, uncomplicated; R47.81 Slurred speech; E78.2 Mixed hyperlipidemia; R29.700 NIHSS score 0; E78.00 Pure hypercholesterolemia, unspecified; Z89.012 Acquired absence of left thumb; Z82.49 Family history of ischemic heart disease and other diseases of the circulatory system; Z71.6 Tobacco abuse counseling; Z23 Encounter for immunization
CPT/HCPCS: 36415; 70450; 70544; 70551; 80048; 80053; 80061; 82962; 83036; 84484; 85025; 85610; 85670; 85730; 87116; 90732; 93005; 93010; 93306; 93880; 99406; G0378; A9270-GY; J1644; J7030